=== PATIENT | female | born 1940 | race Caucasian/White ===

== ENCOUNTER 2016-12-06 10:21 | Outpatient (CLI) | payer MEDICARE | END 2016-12-06 10:22 | disposition home or self-care (01) | DX: Z00.00 Encounter for general adult medical examination without abnormal findings (principal); Z79.899 Other long term (current) drug therapy; I10 Essential (primary) hypertension; G47.33 Obstructive sleep apnea (adult) (pediatric); K21.9 Gastro-esophageal reflux disease without esophagitis; Z86.010 Personal history of colon polyps; N20.0 Calculus of kidney; R80.9 Proteinuria, unspecified; G64 Other disorders of peripheral nervous system; M85.80 Other specified disorders of bone density and structure, unspecified site; E11.9 Type 2 diabetes mellitus without complications; E78.5 Hyperlipidemia, unspecified; D64.9 Anemia, unspecified ==

== ENCOUNTER 2016-12-14 12:53 | Outpatient (CLI) | payer MEDICARE | END 2016-12-14 12:54 | disposition home or self-care (01) | DX: Z12.31 Encounter for screening mammogram for malignant neoplasm of breast (principal) ==

== ENCOUNTER 2017-04-25 12:03 | Outpatient (CLI) | payer MEDICARE ==
--- NOTE | 2017-04-25 16:53 | XRAY Report ---
THREE VIEW RIGHT FOOT: 04/25/2017 CLINICAL INDICATION: Pain. AP, lateral, oblique views of the right foot demonstrate no evidence of fracture or dislocation. Crystal ntar and posterior calcaneal spurring is present. There is no evidence of acute fracture. IMPRESSION: DEGENERATIVE CHANGES, WITH CALCANEAL SPURRING. JOB #: [id number] EXT JOB #:[id number]
--- NOTE | 2017-04-25 16:56 | XRAY Report ---
THREE VIEW RIGHT ANKLE: 04/25/2017 CLINICAL INDICATION: Pain. AP, lateral, oblique views of the right ankle demonstrate no evidence of acute fracture or dislocatio n. Plantar and posterior calcaneal spurring is present. No joint effusion is seen. IMPRESSION: DEGENERATIVE CHANGES, WITH CALCANEAL SPURRING. NO EVIDENCE OF ACUTE FRACTURE. JOB #: [id number] EXT JOB #:[id number]
== END 2017-04-25 12:04 | disposition home or self-care (01) ==
LOC: DI 12:03
PROVIDERS: ATTEND Internal Medicine
DX: M19.071 Primary osteoarthritis, right ankle and foot (principal); M77.31 Calcaneal spur, right foot

== ENCOUNTER 2017-05-24 13:58 | Outpatient (CLI) | payer MEDICARE ==
[2017-05-24 14:52] LABS: CREATININE 0.7 mg/dL (0.4-1.0); POTASSIUM 4.6 mmol/L (3.5-5.0)
[2017-05-24 15:01] LABS: HEMOGLOBIN A1C 0.89 g/dL
== END 2017-05-24 13:59 | disposition home or self-care (01) ==
LOC: LAB 13:58
PROVIDERS: ATTEND Internal Medicine
DX: Z79.899 Other long term (current) drug therapy (principal); E11.9 Type 2 diabetes mellitus without complications
CPT/HCPCS: 36415; 80048; 82607; 83036

== ENCOUNTER 2017-12-11 11:16 | Outpatient (CLI) | payer MEDICARE ==
--- NOTE | 2017-12-12 09:47 | Mammography Report ---
DIGITAL SCREENING MAMMOGRAM: 12/11/2017 HISTORY: Late childbearing. COMPARISON: 12/14/2016, 12/14/2015, 12/01/2014, 12/02/2013, 10/22/2012 and 10/15/2011. TECHNIQUE: Bilateral digital CC and MLO projections. FINDINGS: There is extensive fatty replacement of the breast tissue. Scattered punctate benign appearing calcifications are stable. No dominant mass, architectural distortion, suspicious clustered microcalcifications, skin thickening or interval change. IMPRESSION: NEGATIVE. BI-RADS CATEGORY 1 - NEGATIVE. SUGGEST ROUTINE FOLLOWUP IN 12 MONTHS. STANDARD QUALIFYING STATEMENTS: 1. This examination was reviewed with the aid of Computer-Aided Detection (CAD). 2. A negative or benign imaging report should not delay biopsy if clinically suspicious findings are present. Consider surgical consultation if warranted. More than 5% of cancers are not identified by imaging. 3. Dense breasts may obscure an underlying neoplasm. TD: 12/12/2017 09:46
== END 2017-12-11 11:17 | disposition home or self-care (01) ==
LOC: DI 11:16
PROVIDERS: ATTEND Internal Medicine
DX: Z12.31 Encounter for screening mammogram for malignant neoplasm of breast (principal)
CPT/HCPCS: 77067

== ENCOUNTER 2018-01-03 10:06 | Outpatient (CLI) | payer MEDICARE ==
[2018-01-03 10:49] LABS: BASOPHILS # (AUTO) 0.1 10^3/uL (0.0-0.1); BASOPHILS % (AUTO) 1.3 %; EOSINOPHILS # (AUTO) 0.6 10^3/uL (0.0-0.7); EOSINOPHILS % (AUTO) 8.9 %; HGB - HEMOGLOBIN 10.9 g/dL (12.0-16.0); LYMPHOCYTES # (AUTO) 2.4 10^3/uL (1.5-3.5); LYMPHOCYTES % (AUTO) 37.7 %; MEAN CORPUSCULAR HEMOGLOBIN 25.9 pg (27.0-31.0); MEAN CORPUSCULAR HGB CONC 32.7 g/dL (32.0-36.0); MEAN CORPUSCULAR VOLUME 79.2 fL (81.0-99.0); MEAN PLATELET VOLUME 7.1 fL (7.9-10.8); MONOCYTES # (AUTO) 0.5 10^3/uL (0.0-1.0); MONOCYTES % (AUTO) 7.7 %; NEUTROPHILS # (AUTO) 2.8 10^3/uL (1.5-6.6); NEUTROPHILS % (AUTO) 44.4 %; PLT - PLATELET COUNT 278 10^3/uL (130-450); RED BLOOD COUNT 4.21 10^6/uL (4.20-5.40); RED CELL DISTRIBUTION WIDTH 15.6 % (12.0-15.0); WHITE BLOOD COUNT 6.3 x10^3/uL (4.8-10.8)
[2018-01-03 10:50] LABS: ALBUMIN 4.3 g/dL (3.2-5.5); ALBUMIN/GLOBULIN RATIO 1.5 (1.0-2.2); ALKALINE PHOSPHATASE 53 IU/L (42-121); ALT ALANINE AMINOTRANSFERASE 23 IU/L (10-60); AST ASPARTATE AMINOTRANSFERASE 27 IU/L (10-42); BILIRUBIN,TOTAL 0.4 mg/dL (0.2-1.0); BUN - BLOOD UREA NITROGEN 18 mg/dL (6-20); CALCIUM 9.8 mg/dL (8.5-10.3); CARBON DIOXIDE - CO2 30 mmol/L (21-32); CHLORIDE 96 mmol/L (101-111); CHOL/HDL RATIO 3.4 (<4.4); CHOLESTEROL 152 mg/dL; CK- CREATINE KINASE 27 IU/L (22-269); CREATININE 0.7 mg/dL (0.4-1.0); GFR - MDRD 81 (>89); GLUCOSE 165 mg/dL (70-100); HDL CHOLESTEROL 45 mg/dL; LDL CHOLESTEROL,CALCULATED 61 mg/dL; LDL/HDL RATIO 1.4 (<4.4); MAGNESIUM 1.9 mg/dL (1.7-2.8); SODIUM 133 mmol/L (135-145); TOTAL PROTEIN 7.1 g/dL (6.7-8.2); VLDL CHOLESTEROL 46 mg/dL
[2018-01-03 11:40] LABS: HB2 TOTAL 11.7 g/dL; HEMOGLOBIN A1C 0.85 g/dL; HEMOGLOBIN A1C % 8.8 % (4.6-6.2)
[2018-01-03 11:41] LABS: THYROID STIMULATING HORMONE 2.37 uIU/mL (0.34-5.60)
[2018-01-03 12:07] LABS: BILIRUBIN,URINE NEGATIVE (NEGATIVE); GLUCOSE, URINE (UA) NEGATIVE (NEGATIVE); KETONES,URINE (UA) NEGATIVE (NEGATIVE); LEUKOCYTE ESTERASE, URINE TRACE (NEGATIVE); NITRITE,URINE NEGATIVE (NEGATIVE); OCCULT BLOOD,URINE NEGATIVE (NEGATIVE); PROTEIN,URINE TRACE mg/dL (NEGATIVE); UROBILINOGEN,URINE 0.2 (NORMAL) E.U./dL (NORMAL)
[2018-01-03 12:10] LABS: CLARITY,URINE CLEAR (CLEAR)
[2018-01-03 12:16] LABS: EPITHELIAL CELLS,UR RARE Transitional /HPF (<= Few); RBC,URINE 0-5 /HPF (0-5); SQUAMOUS EPITHELIAL CELL,UR RARE Squamous (<= Few); WBC CLUMPS,URINE PRESENT
[2018-01-03 12:17] LABS: BACTERIA,URINE Rare /HPF (None Seen)
== END 2018-01-03 10:07 | disposition home or self-care (01) ==
LOC: LAB 10:06
PROVIDERS: ATTEND Internal Medicine
DX: Z79.899 Other long term (current) drug therapy (principal); R53.83 Other fatigue; G47.00 Insomnia, unspecified; I10 Essential (primary) hypertension; G47.33 Obstructive sleep apnea (adult) (pediatric); N60.19 Diffuse cystic mastopathy of unspecified breast; K21.9 Gastro-esophageal reflux disease without esophagitis; Z86.010 Personal history of colon polyps; R80.9 Proteinuria, unspecified; G64 Other disorders of peripheral nervous system; M85.80 Other specified disorders of bone density and structure, unspecified site; E11.9 Type 2 diabetes mellitus without complications; E78.5 Hyperlipidemia, unspecified; D64.9 Anemia, unspecified; L42 Pityriasis rosea
CPT/HCPCS: 36415; 80053; 80061; 81001; 82550; 82607; 83036; 83721; 83735; 84443; 85025; 87086

== ENCOUNTER 2018-04-28 14:53 | Outpatient (CLI) | payer MEDICARE ==
--- NOTE | 2018-04-29 09:12 | MRI Report ---
Procedure Date: 04/28/2018 Accession Number: [id number] / [id number] Procedure: MRI - Knee RT W/O CPT Code: FULL RESULT: EXAM: RIGHT KNEE MRI WITHOUT CONTRAST EXAM DATE: 04/28/2018 03:12 PM. CLINICAL HISTORY: Old injury 2001. Torn meniscus. Knee gave way. COMPARISON: None. TECHNIQUE: Multiplanar, multisequence T1-weighted and fluid-sensitive sequences of the knee without contrast. Other: None. FINDINGS: Bones: There is tricompartmental osteophyte formation. There are no visible fractures. Articular Cartilage: There is moderate thinning of the hyaline cartilage of the medial compartment. There is moderate to severe patellofemoral cartilage thinning and mild to moderate lateral compartment cartilage erosion. Medial Meniscus: There is a radial tear of the posterior root attachment with medial extrusion. Lateral Meniscus: The lateral meniscus is intact. Cruciate Ligaments: The anterior and posterior cruciate ligaments are intact. Collateral Ligaments: The medial collateral and lateral collateral ligamentous structures are intact. Tendons: The quadriceps, patellar, semimembranosus, and popliteus tendons are unremarkable. Musculature: No edema or fatty atrophy. Other: There is a large joint effusion. No popliteal cyst. No loose bodies. The medial and lateral retinacula are intact. There is subcutaneous edema of the knee. IMPRESSION: 1. Radial tear of the posterior root attachment of the medial meniscus with medial extrusion. 2. 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 3. Large joint effusion. Subcutaneous edema. [facility]IA MUSCULOSKELETAL RADIOLOGY SECTION
== END 2018-04-28 14:54 | disposition home or self-care (01) ==
LOC: DI 14:53
PROVIDERS: ATTEND Internal Medicine
DX: S83.241A Other tear of medial meniscus, current injury, right knee, initial encounter (principal); M17.11 Unilateral primary osteoarthritis, right knee; M25.461 Effusion, right knee

== ENCOUNTER 2018-06-19 11:46 | Outpatient (CLI) | payer MEDICARE ==
[2018-06-19 12:54] LABS: CALCIUM 9.9 mg/dL (8.5-10.3); CREATININE 0.6 mg/dL (0.4-1.0)
[2018-06-19 13:11] LABS: FERRITIN 6.1 ng/mL (11.0-306.8)
[2018-06-19 13:27] LABS: HB2 TOTAL 11.1 g/dL; HEMOGLOBIN A1C 0.81 g/dL; HEMOGLOBIN A1C % 8.8 % (4.6-6.2)
== END 2018-06-19 11:47 | disposition home or self-care (01) ==
LOC: LAB 11:46
PROVIDERS: ATTEND Internal Medicine
DX: Z79.899 Other long term (current) drug therapy (principal); D64.9 Anemia, unspecified; E11.9 Type 2 diabetes mellitus without complications
CPT/HCPCS: 36415; 80048; 82607; 82728; 83036; 83540; 84466

== ENCOUNTER 2019-01-09 13:12 | Outpatient (CLI) | payer MEDICARE ==
--- NOTE | 2019-01-09 17:23 | XRAY Report ---
Reason: L HIP PAIN Procedure Date: 01/09/2019 Accession Number: [id number] / [id number] Procedure: XR - Hip w/Pelvis 2-3V LT CPT Code: FULL RESULT: EXAM: LEFT HIP RADIOGRAPHY EXAM DATE: 01/09/2019 01:44 PM. CLINICAL HISTORY: Left hip pain COMPARISON: None. TECHNIQUE: 2 views. FINDINGS: Bones: Normal. No fractures or bone lesion. Joints: Joint spacing is maintained. No evidence of dislocation. Soft Tissues: Normal. No soft tissue swelling. IMPRESSION: Negative hip radiography. No evidence of fracture or dislocation. No radiographic evidence of significant degenerative disease. [facility]
== END 2019-01-09 13:13 | disposition home or self-care (01) ==
LOC: DI 13:12
PROVIDERS: ATTEND Internal Medicine
DX: M25.552 Pain in left hip (principal)

== ENCOUNTER 2019-01-29 14:57 | Outpatient (CLI) | payer MEDICARE ==
--- NOTE | 2019-01-30 08:59 | Mammography Report ---
Reason: SCREENING MAMMO Procedure Date: 01/29/2019 Accession Number: [id number] / [id number] Procedure: SARAH - Screening Mammo w/Osmel CPT Code: FULL RESULT: EXAM: Screening Mammo w/Osmel DATE: 01/29/2019 3:22 PM CLINICAL HISTORY: History of late childbearing and family history of breast cancer. History of estrogen therapy from [id number]. TECHNIQUE: (B) - Bilateral CC and MLO views were obtained. COMPARISON: 12/11/2017 through 12/02/2013. PARENCHYMAL PATTERN: (F) - The breast(s) demonstrate(s) diffuse fatty replacement. FINDINGS: There are coarse typically benign calcifications. There are no suspicious masses, calcifications, or areas of distortion. IMPRESSION: Benign findings. BI-RADS category 2. RECOMMENDATION: (ANNUAL) - Recommend routine annual screening mammography. BI-RADS CATEGORY: (2) - Benign Findings. STANDARD QUALIFYING STATEMENTS: 1. This examination was not reviewed with the aid of Computer-Aided Detection (CAD). 2. A negative or benign imaging report should not preclude biopsy if clinically suspicious findings are present. 3. Dense breasts may obscure an underlying neoplasm. 4. This examination was reviewed with the aid of 3D breast imaging (tomosynthesis).
== END 2019-01-29 14:58 | disposition home or self-care (01) ==
LOC: DI 14:57
PROVIDERS: ATTEND Internal Medicine
DX: Z12.31 Encounter for screening mammogram for malignant neoplasm of breast (principal); Z80.3 Family history of malignant neoplasm of breast
CPT/HCPCS: 77063; 77067

== ENCOUNTER 2021-12-06 10:31 | Outpatient (CLI) | payer MEDICARE ==
[2021-12-06 10:55] LABS: BASOPHILS % (AUTO) 0.7 %; EOSINOPHILS # (AUTO) 0.2 10^3/uL (0.0-0.7); EOSINOPHILS % (AUTO) 4.3 %; HCT - HEMATOCRIT 36.9 % (37.0-47.0); HGB - HEMOGLOBIN 12.4 g/dL (12.0-16.0); LYMPHOCYTES # (AUTO) 1.8 10^3/uL (1.5-3.5); LYMPHOCYTES % (AUTO) 31.3 %; MEAN CORPUSCULAR HEMOGLOBIN 30.2 pg (27.0-31.0); MEAN CORPUSCULAR HGB CONC 33.6 g/dL (32.0-36.0); MEAN PLATELET VOLUME 8.9 fL (7.9-10.8); MONOCYTES # (AUTO) 0.4 10^3/uL (0.0-1.0); MONOCYTES % (AUTO) 7.5 %; NEUTROPHILS # (AUTO) 3.1 10^3/uL (1.5-6.6); PLT - PLATELET COUNT 215 10^3/uL (130-450); RED CELL DISTRIBUTION WIDTH 13.5 % (12.0-15.0); WHITE BLOOD COUNT 5.6 x10^3/uL (4.8-10.8)
[2021-12-06 11:02] LABS: CREATININE,URINE 61.6 mg/dL; MICROALBUM/CREATININE RATIO,UR 530.8 ug/mg (<30.0); MICROALBUMIN,URINE 32.7 mg/dL (0-300.0)
[2021-12-06 11:09] LABS: % IRON SATURATION 18 % (20-50); ALBUMIN 4.5 g/dL (3.2-5.5); ALBUMIN/GLOBULIN RATIO 1.4 (1.0-2.2); ALKALINE PHOSPHATASE 44 IU/L (42-121); ALT ALANINE AMINOTRANSFERASE 20 IU/L (10-60); AST ASPARTATE AMINOTRANSFERASE 20 IU/L (10-42); BILIRUBIN,TOTAL 0.6 mg/dL (0.2-1.0); BUN - BLOOD UREA NITROGEN 24 mg/dL (6-20); CALCIUM 10.1 mg/dL (8.5-10.3); CARBON DIOXIDE - CO2 25 mmol/L (21-32); CHLORIDE 95 mmol/L (101-111); CHOL/HDL RATIO 3.5 (<4.4); CHOLESTEROL 160 mg/dL; CK- CREATINE KINASE 44 IU/L (22-269); CREATININE 0.9 mg/dL (0.4-1.0); GFR - MDRD 60 (>89); GLUCOSE 172 mg/dL (70-100); HDL CHOLESTEROL 46 mg/dL; IRON 72 ug/dL (28-170); LDL CHOLESTEROL,CALCULATED 57 mg/dL; LDL/HDL RATIO 1.2 (<4.4); MAGNESIUM 1.6 mg/dL (1.7-2.8); POTASSIUM 4.6 mmol/L (3.5-5.0); SODIUM 131 mmol/L (135-145); TOTAL IRON BINDING CAPACITY 410 ug/dL (250-450); TOTAL PROTEIN 7.7 g/dL (6.7-8.2); TRANSFERRIN 293 mg/dL (192-382); TRIGLYCERIDES 285 mg/dL; VLDL CHOLESTEROL 57 mg/dL
[2021-12-06 11:21] LABS: THYROID STIMULATING HORMONE 2.22 uIU/mL (0.34-5.60)
[2021-12-06 11:27] LABS: FERRITIN 20.2 ng/mL (11.0-306.8)
[2021-12-06 12:20] LABS: ESTIMATED AVERAGE GLUCOSE 192 mg/dL (70-100); HEMOGLOBIN A1c% 8.3 % (4.27-6.07)
== END 2021-12-06 10:32 | disposition home or self-care (01) ==
LOC: LAB 10:31
PROVIDERS: ATTEND Internal Medicine
DX: Z00.00 Encounter for general adult medical examination without abnormal findings (principal); D64.9 Anemia, unspecified; H91.90 Unspecified hearing loss, unspecified ear; E11.9 Type 2 diabetes mellitus without complications; R53.83 Other fatigue; K21.9 Gastro-esophageal reflux disease without esophagitis; Z86.010 Personal history of colon polyps; E83.52 Hypercalcemia; E78.5 Hyperlipidemia, unspecified; I10 Essential (primary) hypertension; G47.00 Insomnia, unspecified; G47.62 Sleep related leg cramps; G47.33 Obstructive sleep apnea (adult) (pediatric); G62.9 Polyneuropathy, unspecified; Z79.899 Other long term (current) drug therapy; Z13.6 Encounter for screening for cardiovascular disorders
CPT/HCPCS: 36415; 80053; 80061; 82043; 82550; 82570; 82607; 82728; 83036; 83540; 83721; 83735; 84443; 84466; 85025

== ENCOUNTER 2022-02-07 13:10 | Outpatient (CLI) | payer MEDICARE ==
--- NOTE | 2022-02-09 07:53 | Mammography Report ---
BILATERAL DIGITAL SCREENING MAMMOGRAM 3D/2D: 02/07/2022 CLINICAL: Routine screening. Comparison is made to exams dated: 01/29/2019 mammogram, 12/11/2017 mammogram, 12/14/2016 mammogram, 2015 mammogram, 12/01/2014 mammogram, and 12/02/2013 mammogram - [facility]. The tis yvonne of both breasts is predominantly fatty. There are benign calcifications in both breasts. No significant masses, calcifications, or other findings are seen in either breast. There has been no significant interval change. IMPRESSION: BENIGN There is no mammographic evidence of malignancy. A 1 year screening mammogram is recommended. This exam was interpreted at Station ID: [id number]. NOTE: For mammograms, a report in lay terms will be sent to the patient. Approximately 15% of breast malignancies will not be visualized mammographically. In the management of a palpable breast mass, a negative mammogram must not discourage biopsy of a clinically suspicious lesion. Electronically Signed By: Jay Yousif acr/penrad:02/07/2022 15:46:07 ACR BI-RADS Category 2: Benign Finding(s) 3342F PARENCHYMAL PATTERN: (F) - The breast(s) demonstrate(s) diffuse fatty replacement. BI-RADS CATEGORY: (2) - 2 RECOMMENDATION: (ANNUAL) - Recommend routine annual screening mammography. [id number] 1 year screening LATERALITY: (B)
== END 2022-02-07 13:11 | disposition home or self-care (01) ==
LOC: DI.N 13:10
PROVIDERS: ATTEND Internal Medicine
DX: Z12.31 Encounter for screening mammogram for malignant neoplasm of breast (principal)

== ENCOUNTER 2023-02-20 13:28 | Outpatient (CLI) | payer MEDICARE ==
--- NOTE | 2023-02-21 12:17 | Mammography Report ---
BILATERAL DIGITAL SCREENING MAMMOGRAM 3D/2D: 02/20/2023 CLINICAL: Routine screening. Comparison is made to exams dated: 02/07/2022 mammogram, 01/29/2019 mammogram, 12/11/2017 mammogram, 2016 mammogram, 12/14/2015 mammogram, and 12/01/2014 mammogram - [facility]. There are scattered areas of fibroglandular density in both breasts (category b / 25%-50% glandular t issue). There are benign calcifications in both breasts. No significant masses, calcifications, or other findings are seen in either breast. There has been no significant interval change. IMPRESSION: BENIGN There is no mammographic evidence of malignancy. A 1 year screening mammogram is recommended. Based on the Tyrer Cuzick model (a risk assessment model) the patients lifetime risk is 0.5% and her 10 year risk is 0.0%. According to the ACR, ACS, and NCCN guidelines, an annual breast MRI exam umesh g with mammogram is recommended if the patients lifetime risk is 20% or greater. This exam was interpreted at Station ID: [id number]. NOTE: For mammograms, a report in lay terms will be sent to the patient. Approximately 15% of breast malignancies will not be visualized mammographically. In the management of a palpable breast mass, a negative mammogram must not discourage biopsy of a clinically suspicious lesion. Electronically Signed By: Jose Alberto [email or web address]/[email or web address]:02/20/2023 17:48:38 letter sent: No_Letter ACR BI-RADS Category 2: Benign Finding(s) 3342F PARENCHYMAL PATTERN: (A) - The breast(s) demonstrate(s) scattered fibroglandular densities. BI-RADS CATEGORY: (2) - 2 Mammogram [id number] 1 year screening LATERALITY: (B)
== END 2023-02-20 13:29 | disposition home or self-care (01) ==
LOC: DI 13:28
PROVIDERS: ATTEND Internal Medicine
DX: Z12.31 Encounter for screening mammogram for malignant neoplasm of breast (principal)

== ENCOUNTER 2023-03-25 15:15 | Outpatient (CLI) | payer MEDICARE ==
[2023-03-25 21:18] LABS: BASOPHILS % (AUTO) 0.7 %; EOSINOPHILS # (AUTO) 0.1 10^3/uL (0.0-0.7); EOSINOPHILS % (AUTO) 2.3 %; HCT - HEMATOCRIT 40.2 % (37.0-47.0); HGB - HEMOGLOBIN 13.1 g/dL (12.0-16.0); LYMPHOCYTES % (AUTO) 32.5 %; MEAN CORPUSCULAR HGB CONC 32.6 g/dL (32.0-36.0); MEAN PLATELET VOLUME 9.7 fL (7.9-10.8); MONOCYTES # (AUTO) 0.4 10^3/uL (0.0-1.0); MONOCYTES % (AUTO) 6.8 %; NEUTROPHILS # (AUTO) 3.5 10^3/uL (1.5-6.6); NEUTROPHILS % (AUTO) 57.5 %; PLT - PLATELET COUNT 242 10^3/uL (130-450); RED BLOOD COUNT 4.37 10^6/uL (4.20-5.40); RED CELL DISTRIBUTION WIDTH 13.2 % (12.0-15.0)
[2023-03-25 21:55] LABS: ALBUMIN 4.8 g/dL (3.2-5.5); ALBUMIN/GLOBULIN RATIO 1.5 (1.0-2.2); BILIRUBIN,TOTAL 0.6 mg/dL (0.2-1.0); CALCIUM 10.7 mg/dL (8.5-10.3); CREATININE 0.8 mg/dL (0.4-1.0); POTASSIUM 4.5 mmol/L (3.5-5.0); TOTAL PROTEIN 7.9 g/dL (6.7-8.2)
[2023-03-25 22:12] LABS: THYROID STIMULATING HORMONE 2.26 uIU/mL (0.34-5.60)
== END 2023-03-25 15:30 | disposition home or self-care (01) ==
LOC: LAB.N 15:15
PROVIDERS: ATTEND Registered Nurse
DX: R00.0 Tachycardia, unspecified (principal); R07.89 Other chest pain
CPT/HCPCS: 36415; 80053; 84443; 84484; 85025

== ENCOUNTER 2023-03-25 18:45 | Outpatient (CLI) | payer MEDICARE ==
--- NOTE | 2023-03-26 10:42 | XRAY Report ---
PROCEDURE: Chest 2 View X-Ray INDICATIONS: TACHYCARDIA,ATYPICAL CHEST PAIN TECHNIQUE: 2 views of the chest were acquired. COMPARISON: 01/23/2016. FINDINGS: Surgical changes and devices: None. Lungs and pleura: No pleural effusions or pneumothorax. Lungs are clear. Mediastinum: Mediastinal contours appear normal. Mild cardiomegaly. Bones and chest wall: No suspicious bony lesions. Overlying soft tissues appear unremarkable. IMPRESSION: Mild cardiomegaly. No acute pulmonary process. Reviewed by: Raul Hu MD on 03/26/2023 10:41 AM PDT Approved by: Raul Hu MD on 03/26/2023 10:41 AM PDT Station ID: [id number]
== END 2023-03-25 18:46 | disposition home or self-care (01) ==
LOC: DI 18:45
PROVIDERS: ATTEND Registered Nurse
DX: R00.0 Tachycardia, unspecified (principal); R07.89 Other chest pain; I51.7 Cardiomegaly
CPT/HCPCS: 36415; 80053; 84443; 84484; 85025